=== PATIENT | male | born 1995 | race Caucasian/White ===

== ENCOUNTER 2018-12-31 22:36 | Emergency (ER) | payer OTHER ==
[~2018-12-31] VITALS: Ht 175.3 cm; Wt 102.5 kg
[2018-12-31 22:45] VITALS: BP_SYST 123
[2019-01-01 00:15] VITALS: BP_SYST 120
== END 2019-01-01 00:15 | disposition home or self-care (01) ==
LOC: SED 22:36
DX: R07.89 Other chest pain (principal); R06.02 Shortness of breath; R20.2 Paresthesia of skin; F17.290 Nicotine dependence, other tobacco product, uncomplicated; Z71.6 Tobacco abuse counseling
CPT/HCPCS: 71046-TC; 93005; 99283

== ENCOUNTER 2019-01-11 16:42 | Emergency (ER) | payer OTHER ==
[~2019-01-11] VITALS: Ht 175.3 cm; Wt 103.9 kg
[2019-01-11 16:42] VITALS: BP_SYST 120
--- NOTE | 2019-01-11 16:45 | NUR ---
BROUGHT BACK TO BED #7 AND TRIAGED. REPORT GIVEN TO WENDIE
--- NOTE | 2019-01-11 16:50 | NUR ---
Pt brought by self,A&Ox4, pt presents to ER with R lower abdominal pain and nasal congestion, skin pink and warm, cap refill <3, VSS, afebrile, denies diarrhea, denies N/V or constipation . Addendum: 01/11/19 at 1808 by [email or web address] Pt also c/o persistent cough.
--- NOTE | 2019-01-11 16:52 | NUR ---
Galen Kwok at bedside examining patient.
[2019-01-11 17:43] VITALS: BP_SYST 120
--- NOTE | 2019-01-11 17:43 | NUR ---
Patient given written and verbal discharge instructions and verbalizes understanding. ER MD discussed with patient the results and treatment provided. Patient in stable condition. ID arm band removed. Rx of Flonase, Tessalon pearls and Motrin given. Patient educated on pain management and to follow up with PMD. Pain Scale 2/10 tolerable for patient . Opportunity for questions provided and answered. Medication side effect fact sheet provided.
== END 2019-01-11 17:43 | disposition home or self-care (01) ==
LOC: SED 16:42
DX: J06.9 Acute upper respiratory infection, unspecified (principal); R42 Dizziness and giddiness
CPT/HCPCS: 99283